=== PATIENT | female | born 1970 | race African-American/Black ===

== ENCOUNTER 2019-08-24 10:54 | Emergency (ER) | payer MEDICARE, BC ==
[2019-08-24] MEDS ORDERED: 0.9 % SODIUM CHLORIDE 1,000 ML BAG IV ONE (11:07)
--- NOTE | 2019-08-24 11:07 | Emergency Department Record ---
History of Present Illness - General Chief complaint: Dehydration Stated complaint: THINKS SHE DEHYRATED Time Seen by Provider: 08/24/19 10:57 Source: Patient Mode of Arrival: Ambulatory Limitations: No limitations - History of Present Illness Initial comments: 49 yo female presents with a concern about dehydration. The patient has a colostomy due to a complicated past medical history. She has high out put dehydration at times. She is concerned she is currently dehydrated. She was busy yesterday and had little intake due to being on the road all day. She denies any fever, chills, nausea, vomiting or pain. When she normally eats she has increased output from her colostomy. Her current output this morning is normal. No blood. No signs of obstruction. Her last surgery at the [facility] was revision of her colostomy. She had follow up yesterday with ostomy nurse. No complications at that time. 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 MD Complaint: Generalized weakness -: Days(s) (1) Location: Generalized Severity: Moderate Quality: Other (No pain) Consistency: Constant Improves with: None Worsens with: Other Context: Other Associated Symptoms: Denies other symptoms - [place] Coma Scale Eye Response: (4) Open spontaneously Motor Response: (6) Obeys commands Verbal Response: (5) Oriented Han Total: 15 - Related Data Home Medications Medication Instructions Recorded Confirmed Last Taken Acetaminophen [Pain Relief] 1,000 mg PO TID 08/24/19 08/24/19 Unknown Amitriptyline HCl 75 mg PO QHS 08/24/19 08/24/19 Unknown Cephalexin [Keflex] 5 ml PO BID 08/24/19 08/24/19 Unknown Cetirizine HCl [Zyrtec] 10 mg PO DAILY 08/24/19 08/24/19 Unknown Cholecalciferol (Vitamin D3) 50,000 unit PO DAILY 08/24/19 08/24/19 Unknown [Vitamin D] Clonazepam 0.5 mg PO ASDIR 08/24/19 08/24/19 Unknown Dronabinol 10 mg PO ASDIR 08/24/19 08/24/19 Unknown Ergocalciferol (Vitamin D2) 50,000 unit PO WEEKLY 08/24/19 08/24/19 Unknown [Vitamin D2] Estrogens, Conjugated [Premarin] 0.3 mg PO DAILY 08/24/19 08/24/19 Unknown Fluticasone Propionate [Flovent 50 mcg IH DAILY 08/24/19 08/24/19 Unknown Diskus] Lipase/Protease/Amylase [Pertzye 1 each PO ASDIR 08/24/19 08/24/19 Unknown 24,000 Unit Capsule] Magnesium Oxide [Magnesium] 400 mg PO DAILY 08/24/19 08/24/19 Unknown Methenamine Hippurate [Hiprex] 1 gm PO DAILY 08/24/19 08/24/19 Unknown Metoclopramide HCl [Reglan] 10 mg PO ASDIR 08/24/19 08/24/19 Unknown Naloxone HCl [Narcan] 4 mg NS ASDIR 08/24/19 08/24/19 Unknown Nitrofurantoin Macrocrystal 100 mg PO DAILY 08/24/19 08/24/19 Unknown [Nitrofurantoin] Ondansetron HCl [Zofran] 4 mg PO Q8H 08/24/19 08/24/19 Unknown Pantoprazole Sodium [Protonix] 40 mg PO DAILY 08/24/19 08/24/19 Unknown Potassium Chloride [Klor-Con] 20 meq PO DAILY 08/24/19 08/24/19 Unknown Trimethobenzamide HCl [Tigan] 300 mg PO Q6H 08/24/19 08/24/19 Unknown Trospium Chloride 20 mg PO BID 08/24/19 08/24/19 Unknown Zolpidem Tartrate [Ambien] 10 mg PO QHS 08/24/19 08/24/19 Unknown Allergies Allergy/AdvReac Type Severity Reaction Status Date / Time levofloxacin [From Levaquin] Allergy HYPERSENSIT Verified 08/24/19 11:13 IVITY morphine Allergy RASH Verified 08/24/19 11:13 Course - Reevaluation(s) Reevaluation #1: 08/24/19 11:52 The CBC was reviewed No acute changes The CMP was reviewed. No significant abnormalities. Normal renal function and K is 4 Mg is 1.4 08/24/19 12:11 The patient is doing well The plan is to hydrate and DC home to follow up as scheduled with her PCP 08/24/19 12:29 No complaints. Doing well. Replacing fluids and electrolytes. 08/24/19 13:50 The patient is feeling much improved after hydration We discussed reasons to return and close follow up with all her doctors Medical Decision Making - Lab Data Result diagrams: 08/24/19 11:15 08/24/19 11:15 Disposition Disposition: Discharge Clinical Impression: Dehydration Disposition: Home, Self-Care Condition: (1) Good Instructions: Dehydration (ED) Additional Instructions: Review this ER visit and the tests performed with your family doctor Call your doctor for the next available follow up appointment Return to the ER for a recheck if worse, any new concerns or questions Forms: Patient Portal Access Time of Disposition: 13:50 Quality - Quality Measures Quality Measures: N/A - Blood Pressure Screening Does Patient Have Any of the Following: No Blood Pressure Classification: Normal BP Reading Systolic Measurement: 102 Diastolic Measurement: 70 Screening for High Blood Pressure: < Normal BP, F/U Not Required > [G8783]
[2019-08-24 11:42] LABS: ABSOLUTE NEUTROPHIL COUNT 5.72; HEMATOCRIT 35.6 % (35.0-47.0); HEMOGLOBIN 10.9 gm/dl (11.6-16.0); MEAN CORPUSCULAR HEMOGLOBIN 26.3 pg (27-33); MEAN CORPUSCULAR HGB CONC 30.6 g/dl (32-36); MEAN PLATELET VOLUME 11.2 fl (7.4-10.4); PLATELET COUNT 210 K/uL (130-400); RED BLOOD COUNT 4.14 M/uL (3.80-5.40); RED CELL DISTRIBUTION WIDTH 13.8 % (11.5-14.5); WHITE BLOOD COUNT W/O DIFF 6.9 K/uL (4.2-12.2)
[2019-08-24 11:48] LABS: BLOOD UREA NITROGEN 18 mg/dL (6-20); CREATININE 0.5 mg/dL (0.5-0.9); EST GLOMERULAR FILTRATION RATE > 60 mL/min; LIPASE 48 U/L (13-60); TOTAL PROTEIN 8.3 g/dL (6.6-8.7)
[2019-08-24 11:50] LABS: GLUCOSE,RANDOM 99 mg/dL (74-109)
[2019-08-24] MEDS ORDERED: MAGNESIUM SULFATE 16 MEQ in 0.9 % SODIUM CHLORIDE 100ML 100 ML IV ONE (11:52)
[2019-08-24 11:53] LABS: ALB/GLOB RATIO 1.4 (1.1-1.8); ALBUMIN 4.9 g/dL (4.0-5.0); ALKALINE PHOSPHATASE 94 U/L (35-104); ALT/SGPT 11 U/L (<33); AST/SGOT 25 U/L (10.0-35.0)
== END 2019-08-24 13:57 | disposition home or self-care (01) ==
LOC: ER 10:54
DX: E86.0 Dehydration (principal); R53.1 Weakness
CPT/HCPCS: 80053; 83690; 83735; 85027; 96365; 99284; 99285; J7030